=== PATIENT | female | born 1960 | race Caucasian/White ===

== ENCOUNTER → 2017-04-04 | Outpatient (CLI) | payer OTHER ==
--- NOTE | 2017-04-05 12:10 | MM ---
Reason for exam: screening (asymptomatic). Last mammogram was performed 1 year ago. History: Patient has history of endometrial cancer at age 30. Family history of breast cancer in maternal aunt at age 75. Took hormonal contraceptives for 12 years 6 months beginning at age 36. Physical Findings: A clinical breast exam by your physician is recommended on an annual basis and results should be correlated with mammographic findings. MG Screening Mammo w CAD Bilateral CC and MLO view(s) were taken. Prior study comparison: April 03, 2016, bilateral MG screening mammo w CAD. October 13, 2015, right breast US breast RT. March 28, 2015, bilateral MG screening mammo w CAD. The breast tissue is heterogeneously dense. This may lower the sensitivity of mammography. There is chronic nodularity bilaterally. There is no dominant lesion. No significant changes when compared with prior studies. ASSESSMENT: Negative, BI-RAD 1 RECOMMENDATION: Routine screening mammogram of both breasts in 1 year.
== END | disposition home or self-care (01) ==
LOC: RADMAMWWP 16:09
PROVIDERS: ATTEND Family Medicine
DX: Z12.31 Encounter for screening mammogram for malignant neoplasm of breast (principal)

== ENCOUNTER → 2018-04-25 | Outpatient (CLI) | payer OTHER ==
--- NOTE | 2018-04-29 08:55 | MM ---
Reason for exam: screening (asymptomatic). Last mammogram was performed 1 year and 1 month ago. History: Patient is postmenopausal and has history of endometrial cancer at age 30. Family history of breast cancer in maternal aunt at age 75. Took hormonal contraceptives for 12 years 6 months beginning at age 36. Physical Findings: A clinical breast exam by your physician is recommended on an annual basis and results should be correlated with mammographic findings. MG Screening Mammo w CAD Bilateral CC and MLO view(s) were taken. Prior study comparison: April 04, 2017, bilateral MG screening mammo w CAD. April 03, 2016, bilateral MG screening mammo w CAD. The breast tissue is heterogeneously dense. This may lower the sensitivity of mammography. There is chronic nodularity in the left breast. No significant changes when compared with prior studies. ASSESSMENT: Negative, BI-RAD 1 RECOMMENDATION: Routine screening mammogram of both breasts in 1 year.
== END | disposition home or self-care (01) ==
LOC: RADMAMWWP 14:01
PROVIDERS: ATTEND Family Medicine
DX: Z12.31 Encounter for screening mammogram for malignant neoplasm of breast (principal)
CPT/HCPCS: 77067

== ENCOUNTER → 2019-06-05 | Outpatient (CLI) | payer OTHER ==
--- NOTE | 2019-06-10 09:03 | MM ---
Reason for exam: screening (asymptomatic). Last mammogram was performed 1 year and 1 month ago. History: Patient is postmenopausal and has history of endometrial cancer at age 30. Family history of breast cancer in maternal aunt at age 75. Took hormonal contraceptives for 12 years 6 months beginning at age 36. Physical Findings: A clinical breast exam by your physician is recommended on an annual basis and results should be correlated with mammographic findings. MG Screening Mammo w CAD Bilateral CC and MLO view(s) were taken. Prior study comparison: April 25, 2018, bilateral MG screening mammo w CAD. April 04, 2017, bilateral MG screening mammo w CAD. The breast tissue is heterogeneously dense. This may lower the sensitivity of mammography. No significant changes when compared with prior studies. ASSESSMENT: Negative, BI-RAD 1 RECOMMENDATION: Routine screening mammogram of both breasts in 1 year.
== END | disposition home or self-care (01) ==
LOC: RADMAMWWP 14:32
PROVIDERS: ATTEND Family Medicine
DX: Z12.31 Encounter for screening mammogram for malignant neoplasm of breast (principal)
CPT/HCPCS: 77067

== ENCOUNTER 2019-07-31 11:25 | Day surgery (SDC) | payer OTHER ==
[2019-07-28 15:38] VITALS: BMI 27.0
[~2019-07-31 11:25] MED LIST: DEXAMETHASONE SOD PHOSPHATE 10 MG/ML 1 ML VIAL IV ONE; LACTATED RINGERS 1,000 ML IV SCH; LIDOCAINE 1% 20 ML VIAL (10MG/ML) FOR IV START INTRADERMA PRN; MIDAZOLAM 2 MG/2 ML VIAL IV PRN; ONDANSETRON 4 MG/2 ML VIAL IVP ONE; Pre Op ABX Message 1 EACH MISC MISCELLANE ONE; SCOPOLAMINE 1.5MG/72HR PATCH TRANSDERM ONE
[2019-07-31 12:09] VITALS: RESP 16; TEMP 97.6
[2019-07-31] MEDS ORDERED: KETAMINE 10 MG/ML 20 ML VIAL ONE (13:29)
[2019-07-31] MEDS ORDERED: PROPOFOL 10 MG/ML 20 ML VIAL IV ONE (13:29)
[2019-07-31] MEDS ORDERED: LIDOCAINE 1% INJ 10MG/ML (20 ML MDV) ONE (13:29)
[2019-07-31] MEDS ORDERED: MIDAZOLAM 2 MG/2 ML VIAL ONE (13:29)
[2019-07-31] MEDS ORDERED: ePHEDrine SULFATE/0.9% NACL/PF 50 MG/5 ML SYRINGE IV ONE (13:29)
[2019-07-31] MEDS ORDERED: fentaNYL (PF) 50 MCG/ML 2 ML AMP ONE (13:29)
[2019-07-31] MEDS ORDERED: SUCCINYLCHOLINE CHLORIDE 100 MG/5 ML SYR IV ONE (13:29)
[2019-07-31] MEDS ORDERED: ROPIVACAINE 5 MG/ML 30 ML VIAL MISCELLANE ONE ×2 (14:09)
[2019-07-31] MEDS ORDERED: LIDOCAINE 1%-EPI 1:100,000 20 ML VIAL SQ ONE ×2 (14:10)
[2019-07-31] MEDS: HYDROmorphone 0.5 MG/0.5 ML SYRINGE IVP PRN ×2 (15:33→15:43)
[2019-07-31] MEDS ORDERED: LACTATED RINGERS 1,000 ML IV ONE (16:01)
[2019-07-31] MEDS ORDERED: HYDROcodone/APAP 5-325MG 1 EACH TAB PO ONE (16:25)
[2019-07-31 17:06] VITALS: BP 115/73; PULSE 86
--- NOTE | 2019-08-01 14:24 | P.OP ---
Date of Procedure: 07/31/19 Preoperative Diagnosis: 1. Right carpal tunnel syndrome 2. Right cubital tunnel syndrome Postoperative Diagnosis: 1. Right carpal tunnel syndrome 2. Right cubital tunnel syndrome Procedure(s) Performed: 1. Right endoscopic carpal tunnel release 2. Right open cubital tunnel release Anesthesia: ELAINA, local Surgeon: Mendoza Brown Selvage Machine Operator #1: Maribell Teresa Estimated Blood Loss (ml): 5 Condition: stable Disposition: PACU Indications for Procedure: The patient is a pleasant 58-year-old female who was diagnosed with right carpal tunnel syndrome and advanced cubital tunnel syndrome. Treatment options (and associated risks and benefits) were discussed in the office. Given the severity of her neuropathy on EMG, surgical release was recommended. We specifically discussed that she the may always have some diminished sensation and weakness, even after surgical release. The patient expressed understanding and willingness to accept these risks and elected to proceed with surgical release. In preop, the patient denied any additional questions or concerns. Consent forms were signed. The operative sites were confirmed and marked. Description of Procedure: The patient was positioned supine with the operative limb on a hand table and all bony prominences were well-padded. General anesthesia was administered uneventfully. A tourniquet was placed on the arm which was then prepped and draped in standard, sterile fashion. A time-out was performed, confirming patient identifiers, the operative side, sites and the procedures to be performed: All team members expressed agreement. The limb was exsanguinated with an Esmarch and the tourniquet was inflated. The carpal tunnel was approached first. A 1.5 cm transverse incision was marked just proximal to the wrist flexion crease, in line with the radial border of the ring finger. The skin was sharply incised and the subcutaneous tissues were spread. The volar carpal fascia was identified and sharply incised. A synovial elevator was used to release adhesions on the underside of the transverse carpal ligament. A dilator was used to sound and enlarge the carpal tunnel. The hamate hook was palpable ulnarly. The washboard effect was palpable. The side- specific guide and camera were inserted. The ligament was clearly visualized above. The distal end of the ligament was palpated with a probe. A synovial rasp was used to clear remaining adhesions. The endoscopic blade was inserted and the distal half of the ligament was sharply incised. Residual transverse fibers were released distally and then the proximal portion of the ligament was divided. Wide release of ligament was visually confirmed. The camera was removed. Under direct visualization with loupe magnification, the volar carpal fascia was released distally and proximally with scissors. The wound was irrigated with normal saline and the incision was closed with interrupted 4-0 Nylon sutures. Attention was then turned to the elbow. A curvilinear incision was marked posterior to the medial epicondyle. The skin was sharply incised and the subcutaneous tissues were spread, cauterizing superficial vessels as needed. The ulnar nerve was palpably identified posterior to the epicondyle. There was a broad expansion of the edge of the medial triceps causing compression on nerve. This was mobilized to alleviate decompression without violating the triceps insertion. The nerve was traced proximally and the overlying adhesions were released. The nerve was still held tightly by the surrounding muscle fascia. Blunt spreading dissection was used to free the nerve. Fascial adhesions over the nerve were released to approximately 8 cm above the epicondyle. The nerve was then traced distally. Davila's ligament was released on its posterior aspect, leaving a cuff of tissue anteriorly to prevent subluxation. The fascia over the flexor-pronator mass was incised and the muscle fibers were bluntly spread, taking care to protect the exiting motor branches. All along its course, the nerve had a flattened, dusky appearance, consistent with chronic compression. Once completely decompressed, the elbow was taken through full range of motion. There was no instability or subluxation of the nerve. The tourniquet was released after 32 minutes at 250 mmHg and good hemostasis was obtained with held pressure and bipolar cautery. Hemostasis at the wrist was also confirmed. The wound was thoroughly irrigated with normal saline. The subcutaneous tissues were reapproximated with 3-0 Vicryl sutures. The incision was closed with a running 4-0 Nylon. Additional local anesthetic with epinephri ne was injected around both wounds for postoperative pain control and adjunctive hemostasis. A soft, sterile dressing was applied to the wrist. A sterile dressing was applied to the elbow, followed by posterior plaster splint with the elbow in approximately 60 of flexion. All sponge, needle and instrument counts were correct at the end of the case. The patient tolerated the procedure well and was transferred to recovery in stable condition.
== END 2019-07-31 17:09 | disposition home or self-care (01) ==
LOC: OR 11:25
PROVIDERS: ATTEND Orthopaedic Surgery
DX: G56.01 Carpal tunnel syndrome, right upper limb (principal); G56.21 Lesion of ulnar nerve, right upper limb; E78.5 Hyperlipidemia, unspecified; K21.9 Gastro-esophageal reflux disease without esophagitis; F32.9 Major depressive disorder, single episode, unspecified; H40.9 Unspecified glaucoma; E89.0 Postprocedural hypothyroidism; Z85.850 Personal history of malignant neoplasm of thyroid; F17.200 Nicotine dependence, unspecified, uncomplicated; Z79.890 Hormone replacement therapy; Z79.899 Other long term (current) drug therapy; Z82.49 Family history of ischemic heart disease and other diseases of the circulatory system; Z88.0 Allergy status to penicillin; Z88.8 Allergy status to other drugs, medicaments and biological substances; Z91.09 Other allergy status, other than to drugs and biological substances
CPT/HCPCS: 64721; 64718; J2250; J1100; J2405; J2001; J3010; J2795; J0330; J2704; J1170

== ENCOUNTER → 2023-02-21 | Outpatient (CLI) | payer MEDICARE, OTHER ==
--- NOTE | 2023-02-22 18:22 | MM ---
Reason for Exam: Screening (asymptomatic). Last mammogram was performed 1 year(s) and 4 month(s) ago. Patient History: Menarche at age 15. First Full-Term at age 19. Postmenopausal. Endometrial cancer, age 30. Hormonal Contraceptives, starting at age 36 for 12 years, 6 months. Maternal aunt had breast cancer, age 75. Risk Values: Taina 5 year model risk: 1.0%. NCI Lifetime model risk: 4.7%. Prior Study Comparison: 04/25/2018 Bilateral Screening Mammogram, [facility]. 06/05/2019 Bilateral Screening Mammogram, [facility]. 10/24/2021 Bilateral Screening Mammogram, [facility]. Tissue Density: The breast tissue is heterogeneously dense. This may lower the sensitivity of mammography. Findings: Analyzed By CAD. Chronic nodularity upper outer quadrant left breast. There is no suspicious group of microcalcifications or new suspicious mass in either breast. Overall Assessment: Benign, BI-RAD 2 Management: Screening Mammogram of both breasts in 1 year. Further clinical management of patient's left breast pain. Patient should continue monthly self-breast exams. A clinical breast exam by your physician is recommended on an annual basis. This exam should not preclude additional follow-up of suspicious palpable abnormalities. Note on Taina scores and lifetime risk: 1. A Taina score greater than 3% is considered moderate risk. If this is the case, consider specialist referral to assess eligibility for a risk reducing agent. 2. If overall lifetime risk for the development of breast cancer is 20% or higher, the patient may qualify for future screening with alternating mammogram and breast MRI. Electronically signed and approved by: Adolph Walton M.D. Radiologist
== END | disposition home or self-care (01) ==
LOC: RADMAMWWP 11:11
PROVIDERS: ATTEND Family Medicine
DX: Z12.31 Encounter for screening mammogram for malignant neoplasm of breast (principal); R07.9 Chest pain, unspecified; Z78.0 Asymptomatic menopausal state; Z80.3 Family history of malignant neoplasm of breast
CPT/HCPCS: 77067

== ENCOUNTER 2024-12-01 17:28 | Emergency (ER) | payer MEDICARE, OTHER ==
[2024-12-01 17:40] VITALS: BP 143/85; PULSE 84; RESP 18; TEMP 98.4
--- NOTE | 2024-12-01 17:56 | ED ---
Chest Pain HPI - General Chief Complaint: Chest Pain Stated Complaint: welfare check Time Seen by Provider: 12/01/24 17:30 Source: patient, EMS, RN notes reviewed Mode of arrival: EMS Limitations: physical limitation - History of Present Illness Initial Comments: This is a 64-year-old female who presents to the emergency department for chest pain. Patient has a vending route servicer, however they have reportedly not come to her house for the last 8 days. She called the company who called the doctor and they advised she come here for evaluation. She reports left-sided chest pain over the last 2 weeks. States that it is a constant aching sensation that is worse with exertion. Unsure how to describe the pain. She does also note dealing with severe anxiety. Denies any shortness of breath. Denies any history of cardiac issues. MD Complaint: chest pain - Related Data Home Medications Medication Instructions Recorded Confirmed Levothyroxine Sodium [Synthroid] 100 mcg PO DAILY 07/28/19 12/01/24 Cyclobenzaprine [Flexeril] 10 mg PO HS 07/29/19 12/01/24 Fluticasone Nasal [place] [Flonase 2 spray EA NOSTRIL DAILY 07/29/19 12/01/24 Nasal [place]] Latanoprost/Pf [Latanoprost 0.005% 1 drop BOTH EYES HS 07/29/19 12/01/24 Eye Drop] Propranolol [Inderal] 40 mg PO DAILY 07/29/19 12/01/24 Timolol 0.5% Ophth Soln [Timoptic 1 drop BOTH EYES DAILY 07/29/19 12/01/24 0.5% Ophth Soln] prednisoLONE ACETATE 1% OPHTH 1 drops BOTH EYES BID 07/29/19 12/01/24 [Pred Forte 1%] Atorvastatin [Lipitor] 40 mg PO HS 12/01/24 12/01/24 Budesonide/Formoterol Fumarate 2 puff INHALATION RT-BID 12/01/24 12/01/24 [Symbicort 160-4.5 Mcg Inhaler] Omeprazole 20 mg PO BID 12/01/24 12/01/24 PARoxetine HCL [Paxil] 40 mg PO DAILY 12/01/24 12/01/24 PARoxetine [Paxil] 10 mg PO DAILY 12/01/24 12/01/24 busPIRone HCL 15 mg PO BID 12/01/24 12/01/24 diphenhydrAMINE [Benadryl] 25 mg PO BID 12/01/24 12/01/24 metFORMIN HCL 500 mg PO BID 12/01/24 12/01/24 Allergies Allergy/AdvReac Type Severity Reaction Status Date / Time amoxicillin Allergy Rash/Hives Verified 12/01/24 19:59 nickel Allergy Rash/Hives, Verified 12/01/24 19:59 ITCHING Review of Systems ROS Statement: Those systems with pertinent positive or pertinent negative responses have been documented in the HPI. ROS Other: All systems not noted in ROS Statement are negative. Past Medical History Past Medical History: Cancer, COPD, GERD/Reflux, Hyperlipidemia, Osteoarthritis (OA), Thyroid Disorder Additional Past Medical History / Comment(s): CERVICAL CANCER , LEGALLY BLIND GLAUCOMA, CATARACTS, UVEITIS, herpes Dec History of Any Multi-Drug Resistant Organisms: None Reported Additional Past Surgical History / Comment(s): THYROID SURGERY, CERVICAL SURGERY FOR CANCER, Past Anesthesia/Blood Transfusion Reactions: No Reported Reaction Past Psychological History: Anxiety, Depression Smoking Status: Current every day smoker Past Alcohol Use History: Rare Past Drug Use History: None Reported - Past Family History Father Family Medical History: Cancer Brother(s) Family Medical History: Cancer Additional Family Medical History / Comment(s): LUNG CANCER General Exam Limitations: no limitations General appearance: alert, in no apparent distress Head exam: Present: atraumatic, normocephalic, normal inspection Respiratory exam: Present: normal lung sounds bilaterally. Absent: respiratory distress, wheezes, rales, rhonchi, stridor Cardiovascular Exam: Present: regular rate, normal rhythm GI/Abdominal exam: Present: soft, normal bowel sounds. Absent: distended, tenderness, guarding, rebound, rigid Neurological exam: Present: alert, oriented X3, CN II-XII intact Psychiatric exam: Present: normal affect, normal mood Skin exam: Present: warm, dry, intact, normal color. Absent: rash Course Vital Signs 12/01/24 17:33 Temperature 98.4 F Pulse Rate 84 Respiratory 18 Rate Blood Pressure 143/85 O2 Sat by Pulse 98 Oximetry Chest Pain MDM - MDM This is a 64 year old female who presents to the emergency department for chest pain. Was pt. sent in by a medical professional or institution? @ -No Did you speak to anyone other than the patient for history? @ -No Did you review nursing and triage notes? @ -Yes, and I agree, it is accurate with regards to the patient's symptoms. Were old charts reviewed? @ -No Differential Diagnosis? @ -Differential Chest Pain: Stable Angina, Unstable Angina, STEMI, NSTEMI Aortic Dissection, Pneumothorax, Musculoskeletal, Esophageal Spasm GERD, Cholecystitis, Pancreatitis, Zoster, this is not meant to be an all-inclusive list. EKG interpreted by me (3pts min.)? @ -EKG interpreted by me demonstrating the following: Sinus rhythm. Ventricular rate 78 bpm, NE interval 130 ms, QRS duration 86 ms, QTc 410 ms. X-rays interpreted by me (1pt min.)? @ -Chest x-ray obtained, my interpretation identifies no localized consolidations or infiltrates. CT interpreted by me (1pt min.)? @ -Not obtained U/S interpreted by me (1pt. min.)? @ -Not obtained What testing was considered but not performed? (CT, X-rays, U/S, labs)? Why? @ -None What meds were considered but not given? Why? @ -None Did you discuss the management of the patient with other professionals? @ -Yes, Dr. Henson, who accepts the patient for admission. Did you reconcile home meds? @ -No Was smoking cessation discussed for >3mins.? @ -No Was critical care preformed (if so, how long)? @ -No Were there social determinants of health that impacted care today? How? (Homelessness, low income, unemployed, alcoholism, drug addiction, transportation, low edu. Level, literacy, decrease access to med. care, assisted, rehab)? @ -No Was there de-escalation of care discussed even if they declined? (Discuss DNR or withdrawal of care, Hospice)? @ -No What co-morbidities impacted this encounter? (DM, HTN, Smoking, COPD, CAD, Cancer, CVA, Hep., AIDS, mental health diagnosis, sleep apnea, morbid obesity)? @ -COPD, HLD, blind Was patient admitted / discharged? @ -Admitted. Lab work demonstrates mild leukocytosis and is otherwise unremarkable. Troponin negative. Urinalysis negative for signs of infection. Chest x-ray reveals no acute process. She was given aspirin and nitroglycerin for the chest pain. Believes that it may have been helpful. Given her age with risk factors and potential improvement with nitroglycerin, she was admitted to medicine for cardiac rule out. Nitropaste was applied. Serial troponins ordered and consult was placed for cardiology. Case discussed with ED attending Dr. Dumas. Undiagnosed new problem with uncertain prognosis? @ -None Drug Therapy requiring intensive monitoring for toxicity (Heparin, Nitro, Insulin, Cardizem)? @ -None Were any procedures done? @ -None Diagnosis/symptom? @ -Chest pain Acute, or Chronic, or Acute on Chronic? @ -Acute Uncomplicated (without systemic symptoms) or Complicated (systemic symptoms)? @ -Uncomplicated Side effects of treatment? @ -None Exacerbation, Progression, or Severe Exacerbation] @ -Not applicable Poses a threat to life or bodily function? @ -Yes, if due to ACS can be life-threatening. Disposition Clinical Impression: Chest pain Disposition: ADMITTED IP TO THIS HOSP
[2024-12-01 18:28] LABS: Basophils # (A) 0.1 k/uL (0-0.2); Basophils % (A) 0 %; Eosinophils # (A) 0.2 k/uL (0-0.7); Eosinophils % (A) 2 %; HCT 48.7 % (34.0-46.0); HGB 15.2 gm/dL (11.4-16.0); Lymphocytes # (A) 2.6 k/uL (1.0-4.8); Lymphocytes % (A) 20 %; MCH 28.6 pg (25.0-35.0); MCHC 31.1 g/dL (31.0-37.0); MCV 91.8 fL (80.0-100.0); Monocytes # (A) 0.5 k/uL (0-1.0); Monocytes % (A) 4 %; Neutrophils # (A) 9.7 k/uL (1.3-7.7); Neutrophils % (A) 73 %; Platelet Count 287 k/uL (150-450); RBC 5.31 m/uL (3.80-5.40); RDW 13.4 % (11.5-15.5); WBC 13.3 k/uL (3.8-10.6)
[2024-12-01] MEDS: ASPIRIN 81 MG PO STA (18:34)
[2024-12-01] MEDS: LORazepam 2 MG/ML INJ IV STA (18:35)
[2024-12-01] MEDS: NITROGLYCERIN SL TABS 0.4 MG TAB SUBLINGUAL STA (18:35)
[2024-12-01 18:42] LABS: ALT 19 U/L (4-34); AST 25 U/L (14-36); African American GFR (CKD) >90 (>60 ml/min/1.73 sqM); Albumin 4.8 g/dL (3.5-5.0); Alkaline Phosphatase 126 U/L (38-126); Anion Gap 12 mmol/L; Blood Urea Nitrogen 11 mg/dL (7-17); Calcium 10.2 mg/dL (8.4-10.2); Carbon Dioxide 26 mmol/L (22-30); Chloride 99 mmol/L (98-107); Creatine Kinase 48 U/L (30-135); Glucose 110 mg/dL (74-99); Lipase 295 U/L (23-300); Magnesium 1.8 mg/dL (1.6-2.3); Non-African American GFR(CKD) >90 (>60 ml/min/1.73 sqM); Sodium 137 mmol/L (137-145); Total Bilirubin 0.8 mg/dL (0.2-1.3); Total Protein 8.1 g/dL (6.3-8.2)
--- NOTE | 2024-12-01 18:53 | XR ---
EXAMINATION TYPE: XR chest 2V DATE OF EXAM: 12/01/2024 6:47 PM COMPARISON: None TECHNIQUE: XR chest 2V Frontal and lateral views of the chest. CLINICAL INDICATION:Female, 64 years old with history of Chest Pain; FINDINGS: Lungs/Pleura: There is no evidence of pleural effusion, focal consolidation, or pneumothorax. Senesc ent parenchymal change. Pulmonary vascularity: Unremarkable. Heart/mediastinum: Cardiomediastinal silhouette is unremarkable. Atherosclerotic calcifications are seen in the aorta. Musculoskeletal: No acute osseous pathology. IMPRESSION: No acute cardiopulmonary disease/process. [facility], , 12/01/2024 6:50 PM
[2024-12-01 19:12] LABS: INR 0.9 (<1.2); Partial Thromboplastin Time 22.6 sec (22.0-30.0); Prothrombin Time 10.3 sec (10.0-12.5)
[2024-12-01 19:15] LABS: Appearance,Urine Clear (Clear); Bilirubin,Urine Negative (Negative); Blood,Urine Negative (Negative); Color,Urine Colorless; Glucose,Urine (UA) Negative (Negative); Ketones,Urine Negative (Negative); Leukocyte Esterase,Urine Negative (Negative); Nitrite,Urine Negative (Negative); Protein,Urine Negative (Negative); Specific Gravity,Urine 1.004 (1.001-1.035); Urobilinogen,Urine <2.0 mg/dL (<2.0)
[2024-12-01] MEDS ORDERED: NALOXONE 0.4 MG/ML 1 ML VIAL IV PRN (19:41)
[2024-12-01] MEDS ORDERED: MORPHINE SULFATE 4 MG/ML SYRINGE IV PRN (19:41)
[2024-12-01] MEDS ORDERED: ACETAMINOPHEN TAB 325 MG TAB PO PRN (19:41)
[2024-12-01] MEDS ORDERED: HYDROcodone/APAP 5-325MG 1 EACH TAB PO PRN (19:41)
[2024-12-01] MEDS ORDERED: ONDANSETRON 4 MG/2 ML VIAL IVP PRN (19:41)
[2024-12-01] MEDS: NITROGLYCERIN OINT 1 INCH/GM PACKET TOPICAL STA (21:54)
[2024-12-02] MEDS ORDERED: PANTOPRAZOLE 40 MG/10 ML VIAL IV SCH (09:00)
== END 2024-12-01 22:05 | disposition left against medical advice (07) ==
LOC: EC 17:28 → SUPCPDRO 17:28 → 6NMEDSUR 19:38 → UNDOADMOB 19:38 → 6NMEDSUR 20:00 → UNDODISOB 22:18
DX: R07.9 Chest pain, unspecified (principal); J44.9 Chronic obstructive pulmonary disease, unspecified; K21.9 Gastro-esophageal reflux disease without esophagitis; E78.5 Hyperlipidemia, unspecified; F41.9 Anxiety disorder, unspecified; F32.A Depression, unspecified; F17.200 Nicotine dependence, unspecified, uncomplicated; Z85.41 Personal history of malignant neoplasm of cervix uteri; Z79.51 Long term (current) use of inhaled steroids; Z79.84 Long term (current) use of oral hypoglycemic drugs; Z79.890 Hormone replacement therapy; Z79.899 Other long term (current) drug therapy; Z88.0 Allergy status to penicillin; Z53.29 Procedure and treatment not carried out because of patient's decision for other reasons
CPT/HCPCS: 99285; 96374; 36415; 93005; 80053; 82550; 83690; 83735; 84484; 85025; 85610; 85730; 81003; 71046; J2060

== ENCOUNTER → 2025-02-01 | Outpatient (CLI) | payer MEDICARE, OTHER ==
--- NOTE | 2025-02-01 14:26 | MM ---
Reason for Exam: Clinical finding. Last mammogram was performed 1 year(s) and 11 month(s) ago. Indicated Problems: Pain of the left side for 2 Year(s). Patient History: Menarche at age 15. First Full-Term at age 19. Postmenopausal. Hormonal Contraceptives, starting at age 36 for 12 years, 6 months. Maternal aunt had breast cancer, age 75. Risk Values: Taina 5 year model risk: 1.0%. NCI Lifetime model risk: 4.4%. Prior Study Comparison: 03/17/2010 Left Diagnostic Ultrasound, [facility]. 04/06/2015 Right Diagnostic Ultrasound, [facility]. 04/25/2018 Bilateral Screening Mammogram, [facility]. 06/05/2019 Bilateral Screening Mammogram, [facility]. 10/24/2021 Bilateral Screening Mammogram, [facility]. 02/21/2023 Bilateral MG screening mammo w CAD, [facility]. Tissue Density: There are scattered areas of fibroglandular density. Findings: Analyzed By CAD. No suspicious new focal mass or worrisome cluster of microcalcification in either breast. Overall Assessment: Negative, BI-RAD 1 Management: Screening Mammogram of both breasts in 1 year. Managed patient's chronic diffuse breast pain clinically. Results were given to the patient verbally at the time of exam. Patient should continue monthly self-breast exams. A clinical breast exam by your physician is recommended on an annual basis. This exam should not preclude additional follow-up of suspicious palpable abnormalities. Note on Taina scores and lifetime risk: 1. A Taina score greater than 3% is considered moderate risk. If this is the case, consider specialist referral to assess eligibility for a risk reducing agent. 2. If overall lifetime risk for the development of breast cancer is 20% or higher, the patient may qualify for future screening with alternating mammogram and breast MRI. [facility], , 02/01/2025 1:56 PM. Electronically signed and approved by: Carlos Eduardo Garcia M.D.
== END | disposition home or self-care (01) ==
LOC: RADMAMWWP 13:07
PROVIDERS: ATTEND Family Medicine
DX: R92.323 Mammographic fibroglandular density, bilateral breasts (principal); Z78.0 Asymptomatic menopausal state; Z80.3 Family history of malignant neoplasm of breast; Z92.0 Personal history of contraception
CPT/HCPCS: 77062; 77066